=== PATIENT | male | born 1980 | race African-American/Black ===

== ENCOUNTER 2016-10-23 08:51 | Emergency (ER) | payer SELFPAY ==
[~2016-10-23] VITALS: Ht 180.3 cm; Wt 105.0 kg
[~2016-10-23 08:51] MED LIST: POLY3.5O LEFT EYE; Z.0.NO CURRENT MEDS
[2016-10-23 08:53] VITALS: BP 136/63; PULSE 80; RESP 16; TEMP 97.8; O2SAT 98
[2016-10-23] MEDS ORDERED: SODIUM CHLOR 0.9% 1000 ML INJ 1,000 ML IV ONE (09:16)
--- NOTE | 2016-10-23 09:21 | PD ---
HPI . Headache Chief Complaint: Headache Time Seen by Provider: 09:16 Travel History International Travel<30 days: No Contact w/Intl Traveler<30days: No Traveled to known affect area: No History of Present Illness HPI Patient presents with a bitemporal headache which started last night. It is associated with nausea, vomiting and dizziness. He denies fever. He denies cold symptoms. He states that he has not taken anything for his headache. He has not noted any exacerbating or relieving factors. [facility] Past Medical History Chemotherapy: No Diminished Hearing: No Genetic Disorder: No Glaucoma: No Past Surgical History Appendectomy: Yes Social History Alcohol Use: Yes (DAILY FOR "AWHILE" HAS NOT HAD A DRINK SINCE 01-05-10) Tobacco Use: Yes (1 CIGAR QD) Substance Use: Yes (OCC.MARIJUANA.) Allergies-Medications (Allergen,Severity, Reaction): Coded Allergies: Aspirin (Verified Allergy, Severe, THROAT SWELLS, 06/18/10) Reported Meds & Prescriptions Reported Meds & Active Scripts Active No Active Prescriptions or Reported Medications Review of Systems Except as stated in HPI: all other systems reviewed are Neg General / Constitutional: No: Fever, Chills Eyes: No: Blurred Vision, Photophobia HENT: Positive: Headaches, No: Sore Throat, Rhinitis, Rhinorrhea, Congestion Gastrointestinal: Positive: Nausea, Vomiting, No: Diarrhea Psychiatric: Positive: Substance Abuse Physical Exam Narrative GENERAL: He is lying on the stretcher moaning. He is moving around in the bed. SKIN: Warm and dry. HEAD: Atraumatic. Normocephalic. EYES: Pupils equal and round. Extraocular movements are intact. ENT: No nasal bleeding or discharge. Mucous membranes pink and moist. NECK: Trachea midline. Neck is supple. CARDIOVASCULAR: Regular rate and rhythm. Heart sounds are normal. RESPIRATORY: No accessory muscle use. Lungs are clear with full air movement throughout. GASTROINTESTINAL: Abdomen soft, non-tender, nondistended. MUSCULOSKELETAL: No obvious deformities. No edema. NEUROLOGICAL: Awake and alert. No obvious cranial nerve deficits. Motor grossly within normal limits. Normal speech. PSYCHIATRIC: Appropriate mood and affect; insight and judgment normal. Data Data Last Documented VS Vital Signs Date Time Temp Pulse Resp B/P Pulse Ox O2 Delivery O2 Flow Rate FiO2 10/23/16 08:53 97.8 80 16 136/63 98 Orders Iv Access Insert/Monitor (10/23/16 09:16) Sodium Chloride 0.9% Flush (Ns Flush) (10/23/16 09:30) Prochlorperazine Inj (Compazine Inj) (10/23/16 09:30) Diphenhydramine Inj (Benadryl Inj) (10/23/16 09:30) Sodium Chlor 0.9% 1000 Ml Inj (Ns 1000 M (10/23/16 09:16) MDM Medical Decision Making Medical Screen Exam Complete: Yes Emergency Medical Condition: Yes Medical Record Reviewed: Yes (patient was seen here about 10 years ago with a very similar history. He had a workup including a head CT which was negative.) Differential Diagnosis Differential diagnosis of headache includes but is not limited to migraine, muscle contraction headache, brain tumor, brain bleed. Narrative Course Patient presents complaining with a headache which started last night. He has a benign exam. 10:25 AM Patient is now sound asleep. Diagnosis Primary Impression: Headache Qualified Code: G44.209 - Acute non intractable tension-type headache Patient Instructions: Acute Headache (DC), General Instructions Scripts No Active Prescriptions or Reported Meds Disposition: DISCHARGE HOME Condition: Stable Airam Castillo MD Oct 23, 2016 09:20
[2016-10-23] MEDS ORDERED: PROCHLORPERAZINE INJ 10 MG/2 ML VIAL IVP ONE (09:30)
[2016-10-23] MEDS ORDERED: SODIUM CHLORIDE 0.9% FLUSH 5 ML FLUSH IVF PRN (09:30)
[2016-10-23] MEDS ORDERED: diphenhydrAMINE HCL 50 MG/ML VIAL IVP ONE (09:30)
== END 2016-10-23 10:51 | disposition home or self-care (01) ==
LOC: NEPA 08:51
DX: R51 Headache (principal); Z72.0 Tobacco use
CPT/HCPCS: 96361; 96374; 96375; 99283; J0780; J1200; J7030

== ENCOUNTER 2017-06-10 21:43 | Emergency (ER) | payer SELFPAY ==
[~2017-06-10] VITALS: Ht 180.3 cm; Wt 120.0 kg
[2017-06-10 21:49] VITALS: BP 133/80; PULSE 81; RESP 16; TEMP 98.4; O2SAT 98
--- NOTE | 2017-06-10 22:14 | PD ---
HPI Chief Complaint: Fall Time Seen by Provider: 22:03 Travel History International Travel<30 days: No Contact w/Intl Traveler<30days: No Traveled to known affect area: No History of Present Illness HPI 36-year-old male presents to the emergency department with right knee pain and lower right back pain after fall that occurred this afternoon. 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 States he finished his shift but his right knee pain increased throughout the day and had some difficulty walking secondary to pain. Pain described as achy and moderate, worse with weightbearing. Lower right back pain mild, increased movement and palpation. Denies head trauma or LOC. Note that patient did not want to come to the emergency department however, his made him. Denies fever, chills, chest pain, shortness of breath, IV drug use. Denies numbness, tingling, or weakness. Denies chronic medical issues and chronic medication use. PFSH Past Medical History Chemotherapy: No Diminished Hearing: No Genetic Disorder: No Glaucoma: No ?: Not Past Surgical History Appendectomy: Yes Social History Alcohol Use: Yes (DAILY FOR "AWHILE" HAS NOT HAD A DRINK SINCE 01-05-10) Tobacco Use: Yes (1 CIGAR QD) Substance Use: Yes (OCC.MARIJUANA.) Allergies-Medications (Allergen,Severity, Reaction): Coded Allergies: aspirin (Unverified Allergy, Severe, THROAT SWELLS, 04/05/17) Reported Meds & Prescriptions Reported Meds & Active Scripts Active No Active Prescriptions or Reported Medications Review of Systems Except as stated in HPI: all other systems reviewed are Neg Physical Exam Narrative GENERAL: Well-developed alert SKIN: Focused skin assessment warm/dry. HEAD: Atraumatic. Normocephalic. EYES: No scleral icterus. No injection or drainage. ENT: No nasal bleeding or discharge. Mucous membranes pink and moist. NECK: Trachea midline. No JVD. No tenderness to palpation of spinous processes or musculature CARDIOVASCULAR: Regular rate and rhythm. No murmur appreciated. RESPIRATORY: No accessory muscle use. Clear to auscultation. Breath sounds equal bilaterally. GASTROINTESTINAL: Abdomen soft, non-tender, nondistended. Hepatic and splenic margins not palpable. MUSCULOSKELETAL: No obvious deformities. No clubbing. No cyanosis. No edema. No CVA tenderness. Mild tenderness to palpation of the right SI joint with some tenderness to surrounding musculature. Negative straight leg raise bilat.. NEUROLOGICAL: Awake and alert. No obvious cranial nerve deficits. Motor grossly within normal limits. Normal speech. Neurovascular intact. PSYCHIATRIC: Appropriate mood and affect; insight and judgment normal. Data Data Last Documented VS Vital Signs Date Time Temp Pulse Resp B/P (MAP) Pulse Ox O2 Delivery O2 Flow Rate FiO2 06/10/17 22:07 Room Air 06/10/17 21:49 98.4 81 16 133/80 (97) 98 Orders Orders Knee, Complete (4vws) (06/10/17 ) Sacroiliac Joints, Bilateral (06/10/17 ) Splint Or Brace Apply/Monitor (06/10/17 22:42) [facility] Medical Decision Making Medical Screen Exam Complete: Yes Emergency Medical Condition: Yes Differential Diagnosis Right knee contusion versus fracture versus strain Right sacroiliitis versus lumbar strain versus sprain versus fracture Narrative Course 36-year-old male presents to the emergency department status post mechanical fall that occurred this afternoon while walking around at work. States that he slept on a small puddle of oil landing on his right knee. States that his knee pain increased throughout the day and also developed mild right low back pain that is worse with movement. Physical exam demonstrated mild tenderness to palpation and movement of the right patella. No joint laxity, negative anterior-posterior drawer, no edema. Right low back with TTP sacroiliac joint and surrounding muscle spasms. Vital signs stable Imaging studies- without acute process Pt did not want medications today. States he will take OTC Motrin or Tylenol for pain. F/U with PCP. Diagnosis Primary Impression: Acute low back pain Qualified Codes: M54.5 - Low back pain Additional Impression: Knee contusion Qualified Codes: S80.01XA - Contusion of right knee, initial encounter Referrals: [facility] Additional Instructions: Follow-up with your primary care physician within 2 days. Performed light stretches of your back and alternate heat and ice Scripts No Active Prescriptions or Reported Meds Disposition: 01 DISCHARGE HOME Condition: Stable Peace Henson Jun 10, 2017 22:14
--- NOTE | 2017-06-10 22:29 | RADRPT ---
EXAM DATE/TIME: 06/10/2017 22:09 [facility] COMPARISON: No previous studies available for comparison. INDICATIONS : Right knee pain post slip and fall. MEDICAL HISTORY : None. SURGICAL HISTORY : Appendectomy. ENCOUNTER: Initial ACUITY: 1 day PAIN SCORE: 8/10 LOCATION: Right knee FINDINGS: Four view examination of the right knee demonstrates no evidence of fracture or dislocation. Bony mi neralization is normal. The articular surfaces are intact. The suprapatellar soft tissues have a no rmal configuration. CONCLUSION: Unremarkable examination of the right knee. Jere Gomez MD on June 10, 2017 at 22:27 Board Certified Radiologist. This report was verified electronically.
--- NOTE | 2017-06-10 22:32 | RADRPT ---
EXAM DATE/TIME: 06/10/2017 22:09 [facility] COMPARISON: No previous studies available for comparison. INDICATIONS : Bilateral sacroiliac joint pain post slip and fall. MEDICAL HISTORY : None. SURGICAL HISTORY : Appendectomy. ENCOUNTER: Initial ACUITY: 1 day PAIN SCORE: 8/10 LOCATION: Bilateral pelvis FINDINGS: Frontal and oblique views of the SI joints were performed. There is a symmetric appearance to the SI joints, without evidence of sclerosis or bridging osteophytes. CONCLUSION: Unremarkable examination of the sacroiliac joints. Jere Gomez MD on June 10, 2017 at 22:30 Board Certified Radiologist. This report was verified electronically.
== END 2017-06-10 23:00 | disposition home or self-care (01) ==
LOC: PHEFT 21:43
DX: M54.5 Low back pain (principal); S80.01XA Contusion of right knee, initial encounter; W01.0XXA Fall on same level from slipping, tripping and stumbling without subsequent striking against object, initial encounter; Y93.01 Activity, walking, marching and hiking; Y92.524 Gas station as the place of occurrence of the external cause; Y99.0 Civilian activity done for income or pay
CPT/HCPCS: 72202; 73564; 99284